=== PATIENT | male | born 1945 | race Caucasian/White ===

== ENCOUNTER 2018-03-18 18:11 | Observation (INO) | payer MEDICARE, OTHER ==
[~2018-03-18] VITALS: Ht 176.8 cm; Wt 74.3 kg
[2018-03-18 21:47] VITALS: PULSE 83
[2018-03-18 22:00] VITALS: BP 111/66; PULSE 83; RESP 18
[2018-03-19] VITALS: BP 112/66; PULSE 76; PULSE 88; RESP 18
[2018-03-19] MEDS ORDERED: ONDANSETRON 4 MG INJ IV PRN
[2018-03-19] MEDS ORDERED: ACETAMINOPHEN 325 MG TAB PO PRN
[2018-03-19] MEDS ORDERED: BISACODYL (EC) 5 MG TAB PO PRN
[2018-03-19] MEDS ORDERED: DOCUSATE SODIUM 100 MG CAP PO PRN
[2018-03-19] MEDS ORDERED: NACL 0.9% 3 ML SYG IV SCH
--- NOTE | 2018-03-19 02:34 | HP ---
Date/Time of Note Date/Time of Note DATE: 03/19/18 TIME: 02:34 Assessment/Plan VTE Prophylaxis SCD applied (from Nsg): Yes Pharmacological prophylaxis: NA/contraindicated Pharm contraindication: low risk/ambulating Lines/Catheters IV Catheter Type (from Nrsg): Peripheral IV Urinary Cath still in place: No Assessment/Plan Hospital Course This is a 73-year-old male being admitted to the telemetry for observation for: #1 suspect syncope: Question syncopal episode versus seizure activity versus other. Patient also apparently has a history of throat cancer. Also given his history of this happening approximately 4 times in the past will proceed with a full workup. Will check an echocardiogram, MRI of the brain with and without contrast. Carotid Doppler ultrasound. Orthostatic vital signs. Will consult neurology . Will check urine drug screen, ethanol level. Check hemoglobin A1c is 5.4, TSH is elevated at 17, will check a free T3 and free T4. Fall precautions, seizure precautions, PRN Ativan. EEG. #2 elevated TSH: Patient did report that he has been feeling tired and he does get short of breath when he walks which could be reflective of a undiagnosed hypothyroidism. We will check free T3 free T4. Given the elevation though in the TSH and the symptoms described above he likely would benefit from levothyroxine. We will need to confirm whether the supposed throat surgery was and may be related to his thyroid instead. #3 history of throat cancer: Reports surgery but no chemotherapy. We will need to see if we can obtain any more information on this. Again we will need to confirm whether this may be was on thyroid surgery and his elevated TSH. #4 DVT GI prophylaxis: SCDs, no GI prophylaxis indicated further treatment Strategy will be implemented as per the clinical course. Result Diagram: 03/18/18 03/18/18 2355 Results 24hrs Laboratory Tests Test 03/18/18 23:55 White Blood Count 10.7 Red Blood Count 4.32 L Hemoglobin 13.5 L Hematocrit 40.3 L Mean Corpuscular Volume 93.3 Mean Corpuscular Hemoglobin 31.3 Mean Corpuscular Hemoglobin Concent 33.5 Red Cell Distribution Width 11.9 Platelet Count 264 Mean Platelet Volume 9.7 Immature Granulocytes % 0.500 H Neutrophils % 58.8 Lymphocytes % 27.4 Monocytes % 10.2 Eosinophils % 2.6 Basophils % 0.5 Nucleated Red Blood Cells % 0.0 Immature Granulocytes # 0.050 H Neutrophils # 6.3 Lymphocytes # 2.9 Monocytes # 1.1 H Eosinophils # 0.3 Basophils # 0.1 Nucleated Red Blood Cells # 0.0 Sodium Level 141 Potassium Level 4.2 Chloride Level 105 Carbon Dioxide Level 26 Anion Gap 10 Blood Urea Nitrogen 16 Creatinine 1.05 Est Glomerular Filtrat Rate mL/min Glucose Level 114 Hemoglobin A1c 5.4 Calcium Level 9.1 Magnesium Level 2.1 Total Bilirubin 0.1 L Direct Bilirubin 0.00 Indirect Bilirubin 0.1 Aspartate Amino Transf (AST/SGOT) 17 Alanine Aminotransferase (ALT/SGPT) 16 Alkaline Phosphatase 80 Total Protein 6.9 Albumin 3.4 Globulin 3.50 H Albumin/Globulin Ratio 0.97 Triglycerides Level 167 H Cholesterol Level 175 LDL Cholesterol, Calculated 113 HDL Cholesterol 29 L Cholesterol/HDL Ratio 6.0 Thyroid Stimulating Hormone (TSH) 17.000 H HPI/ROS Admit Date/Time Admit Date/Time Mar 18, 2018 at 21:26 Hx of Present Illness 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 This is a 73-year-old male who presented to the emergency department at [facility] reporting that he had a syncopal episode. The reports that the patient was sitting on the ground and watching TV and according to the he became unconscious and fell back and he became pale and he started shaking. All imaging studies and lab work remain hospital came back essentially negative for any acute event. The upon questioning states she is unsure whether he had a seizure. It took only a few minutes to recover. She denies any urinary incontinence. Patient himself reports that this has happened approximately 4 times over an unspecified period. He did go to the hospital one time prior and he was discharged and told that there was nothing wrong. He does report that he has been feeling tired lately and when he does feel dyspneic on exertion. He does smoke and he does drink alcohol but is not a heavy drinker. He did have a bit of alcohol yesterday. The patient was transferred to [facility] secondary to insurance purposes. Vitals on presentation to [facility]: Temperature 97.9/pulse 76/respirations 16/BP 138/81/pulse ox 94% on room air Pertinent laboratory findings please see chart for full details: Next CBC: White blood cells 8.1/hemoglobin 14.7/hematocrit 43.7/platelets 259 Sodium 137/potassium 4.0 Glucose 90 Troponin was elevated at 20 CT of the head without IV contrast : No evidence of acute infarct or intracranial hemorrhage Chest x-ray showed: Coarse bilateral reticular markings are noted at the bases. Differential considered include scarring, atelectasis or early atypical pneumonia EKG: Normal sinus rhythm at approximately [address] or T wave abnormalities concerning for acute ischemia. ROS Const: As per HPI Eyes : No pain discharge or redness or change in visual acuity ENT: No pain, sore throat, congestion, congestion, dysphagia or discharge Respiratory: No shortness of breath, cough, sputum, wheezing, or pleuritic pain Cardiovascular: No chest pain, palpitation, PND, or edema GI : no change in appetite, abdominal pain, nausea, vomiting, diarrhea, constipation, or change in the color his stool Genitourinary: No dysuria, hematuria, flank pain , discharge or CVA tenderness Musculoskeletal: No joint pain, back pain, neck pain, restricted range of motion in neck or joints Skin: No rash, bruising or hives Neuro: As per HPI Endocrine: No polyuria, polydipsia, temperature intolerance Psych: No hallucination, depression, anxiety or suicidal ideation PMH/Family/Social Past Medical History Prostate issues, history of throat cancer? (patient unable to provide a proper history in regards to both of these) Medications Current Medications IV Flush (NS 3 ml) 3 ml PER PROTOCOL IV ; Start 03/19/18 at 00:00 Ondansetron HCl (Zofran Inj) 4 mg Q6H PRN IV NAUSEA AND/OR VOMITING; Start 03/19/18 at 00:00 Acetaminophen (Tylenol Tab) 650 mg Q6H PRN PO PAIN LEVEL 1-3 OR FEVER; Start 03/19/18 at 00:00 Docusate Sodium (Colace) 100 mg Q12H PRN PO CONSTIPATION; Start 03/19/18 at 00:00 Bisacodyl (Dulcolax) 5 mg DAILY PRN PO CONSTIPATION; Start 03/19/18 at 00:00 Coded Allergies: No Known Allergy (Unverified , 03/18/18) Past Surgical History Prostate surgery, throat surgery (patient unable to provide a proper history in regards to both of these) Family History Significant Family History: no pertinent family hx Social History Alcohol Use: occasionally Smoking Status: Current every day smoker Exam/Review of Systems Vital Signs Vitals Vital Signs Date Temp Pulse Resp B/P (MAP) Pulse Ox O2 O2 Flow FiO2 Time Delivery Rate 03/19/18 88 00:00 03/19/18 98.3 18 112/66 95 00:00 (81) Exam Exam General: Patient is a pleasant male currently lying in bed in no acute distress HEENT: Atraumatic, normocephalic. The pupils are equal, round and reactive. Extr aocular motor are intact Neck: Supple with full range of motion. No rigidity or meningismus, surgical scar present Chest: Nontender Lungs: Clear to auscultation bilaterally no crackles rales or wheezing Heart: Normal S1-S2, Regular rhythm and rate. No murmur, S3, or S4 Abdomen: Soft , nontender, nondistended , bowel sounds are present. No guarding no rebound tenderness , No masses or organomegaly. No costovertebral temporal angle mass Extremities: Normal to inspection, no edema no cyanosis Neurologic: Normal mental status, speech normal, cranial nerves II through XII are intact, motor and sensory are intact, Additional Comments EKG: Normal sinus rhythm at approximately [address] or T wave abnormalities concerning for acute ischemia. IRENE MADRIGAL Mar 19, 2018 02:34
[2018-03-19 04:00] VITALS: BP 132/77; PULSE 76; PULSE 87; RESP 18
[2018-03-19 07:49] VITALS: BP 122/81; PULSE 77; RESP 18
[2018-03-19 08:25] VITALS: PULSE 76
[2018-03-19] MEDS ORDERED: LORAZEPAM 2 MG INJ IV PRN (08:30)
[2018-03-19] MEDS ORDERED: LEVOTHYROXINE 125 MCG TAB PO SCH (10:00)
--- NOTE | 2018-03-19 10:04 | RADRPT ---
Echocardiogram Report Patient Name: HERBERTH FREEMAN Gender: Male Date: 1945 Study Date: 19-Mar-2018 Senior Project Accountant: Velasquez Mcintyre RDCS Location: 6 Ref. Physician: IRENE MADRIGAL Quality: Adequate Procedures: Transthoracic echocardiogram with complete 2D, M-Mode, and doppler examination. Indications: Syncope. 2D/M Mode Doppler Measurement Value Normal Ranges Measurement Value Normal Ranges LVIDd 2D 3.4 3.5 - 5.6 cm AV Peak Nilesh 0.9 m/sec LVIDs 2D 2.5 2.1 - 4.1 cm AV Peak PG 3.0 mmHg FS 2D 27.1 % LVOT Peak Nilesh 0.7 m/sec LVPWd 2D 1.4 0.6 - 1.1 cm LVOT Peak PG 2.0 mmHg IVSd 2D 1.0 0.6 - 1.1 cm MV E Peak Nilesh 0.4 m/sec IVS/LVPW 2D 0.7 MV A Peak Nilesh 0.7 m/sec AoR Diam 2D 3.1 2.0 - 3.7 cm MV E/A 0.6 LA/Ao 2D 1 0 - 1 MV Decel Time 187 msec EDV 2D 39.3 cm3 MV E/A 0.6 ESV 2D 15.3 cm3 LA Dimen 2D 3.0 2.3 - 4.0 cm Findings Left Ventricle: Normal left ventricular systolic function. Normal left ventricular cavity size. Mild hypertrophy of the basal septum. Ejection fraction is visually estimated at 60 %. Tissue Doppler/Mitral Doppler indices are consistent with impaired relaxation (Stage I diastolic dysfunction). Right Ventricle: Normal right ventricular size. Normal right ventricular systolic function. Left Atrium: There is mild enlargement of left atrium. Right Atrium: The right atrium is normal in size. Mitral Valve: Normal appearance of the mitral valve. Mild mitral annular calcification. No mitral valve regurgitation is seen. Aortic Valve: Aortic sclerosis without significant stenosis. No aortic regurgitation. Tricuspid Valve: Normal appearance of the tricuspid valve. Unable to obtain RVSP due to minimal presence of tricuspid regurgitation. Pericardium: Normal pericardium with no significant pericardial effusion. Aorta: Normal aortic root. IVC: The IVC is not well visualized. Conclusions Normal left ventricular systolic function. Normal left ventricular cavity size. Mild hypertrophy of the basal septum. Ejection fraction is visually estimated at 60 %. Tissue Doppler/Mitral Doppler indices are consistent with impaired relaxation (Stage I diastolic dysfunction). Aortic sclerosis without significant stenosis. Unable to obtain RVSP due to minimal presence of tricuspid regurgitation. The IVC is not well visualized. Electronically Signed By: Negro Lopez 19-Mar-2018 10:03:08 -0800 Patient Name: HERBERTH FREEMAN Study Date: 19-Mar-2018 [id number]
--- NOTE | 2018-03-19 17:03 | DS ---
Date/Time of Note Date/Time of Note DATE: 03/19/18 TIME: 17:00 Discharge Summary Admission/Discharge Info Admit Date/Time Mar 18, 2018 at 21:26 Discharge Date/Time Mar 19, 2018 at 10:32 Discharge Diagnosis Syncope, unclear etiology. Hypothyroidism Patient Condition: Fair Consults None Procedures None Hx of Present Illness This is a 73-year-old male who presented to the emergency department at [facility] reporting that he had a syncopal episode. The reports that the patient was sitting on the ground and watching TV and according to the he became unconscious and fell back and he became pale and he started shaking. All imaging studies and lab work remain hospital came back essentially negative for any acute event. The upon questioning states she is unsure whether he had a seizure. It took only a few minutes to recover. She denies any urinary incontinence. Patient himself reports that this has happened approximately 4 times over an unspecified period. He did go to the hospital one time prior and he was discharged and told that there was nothing wrong. He does report that he has been feeling tired lately and when he does feel dyspneic on exertion. He does smoke and he does drink alcohol but is not a heavy drinker. He did have a bit of alcohol yesterday. The patient was transferred to [facility] secondary to insurance purposes. Vitals on presentation to [facility]: Temperature 97.9/pulse 76/respirations 16/BP 138/81/pulse ox 94% on room air Pertinent laboratory findings please see chart for full details: Next CBC: White blood cells 8.1/hemoglobin 14.7/hematocrit 43.7/platelets 259 Sodium 137/potassium 4.0 Glucose 90 Troponin was elevated at 20 CT of the head without IV contrast : No evidence of acute infarct or intracranial hemorrhage Chest x-ray showed: Coarse bilateral reticular markings are noted at the bases. Differential considered include scarring, atelectasis or early atypical pneumonia EKG: Normal sinus rhythm at approximately [address] or T wave abnormalities concerning for acute ischemia. Hospital Course In the morning soon after I arrived; the patient requested to leave AMA. I explained that there was a risk he may have an underlying cardiac or neurologic problem causing syncope which requires further workup. He declined, saying "If I have another <episode> that's in God's hands". I also mentioned the significant hypothyroidism noted on labs. The patient does not currently take any meds but he is agreeable to take levothyroxine. I will start him on weight based synthroid 125 mcg daily, and he should see his outpatient PMD. Primary Care Provider [facility], [place], [facility] Time spent on discharge: > 30 minutes Pending Labs Laboratory Tests Test 03/18/18 23:55 03/19/18 05:07 03/19/18 07:15 03/19/18 07:21 White Blood 10.7 9.7 Count 10^3/ul (4.8-10 10^3/ul (4.8-1 .8) 0.8) Red Blood 4.32 4.48 Count 10^6/ul (4.70-6 10^6/ul (4.70- .10) 6.10) Hemoglobin 13.5 13.9 g/dl (14.0-18.0 g/dl (14.0-18. ) 0) Hematocrit 40.3 41.6 % (42.0-52.0) % (42.0-52.0) Mean 93.3 92.9 Corpuscular fl (82.0-101.0) fl (82.0-101.0 Volume ) Mean 31.3 31.0 Corpuscular pg (29.0-33.0) pg (29.0-33.0) Hemoglobin Mean 33.5 33.4 Corpuscular g/dl (32.0-37.0 g/dl (32.0-37. Hemoglobin Conc ) 0) ent Red Cell 11.9 12.0 Distribution % (11.5-14.5) % (11.5-14.5) Width Platelet Count 264 246 10^3/UL (140-41 10^3/UL (140-4 5) 15) Mean Platelet 9.7 9.9 Volume fl (7.4-10.4) fl (7.4-10.4) Immature 0.500 0.500 Granulocytes % % (0.001-0.429) % (0.001-0.429 ) Neutrophils % 58.8 57.7 % (39.0-77.0) % (39.0-77.0) Lymphocytes % 27.4 29.4 % (15.0-51.0) % (15.0-51.0) Monocytes % 10.2 8.9 % (0.0-11.0) % (0.0-11.0) Eosinophils % 2.6 % (0.0-7.0) 2.9 % (0.0-7.0) Basophils % 0.5 % (0.0-2.0) 0.6 % (0.0-2.0) Nucleated Red 0.0 0.0 Blood Cells % /100WBC (0.0-0. /100WBC (0.0-0 0) .0) Immature 0.050 0.050 Granulocytes # 10^3/ul (0.0-0. 10^3/ul (0.0-0 031) .031) Neutrophils # 6.3 5.6 10^3/ul (1.6-7. 10^3/ul (1.6-7 5) .5) Lymphocytes # 2.9 2.8 10^3/ul (0.8-2. 10^3/ul (0.8-2 9) .9) Monocytes # 1.1 0.9 10^3/ul (0.3-0. 10^3/ul (0.3-0 9) .9) Eosinophils # 0.3 0.3 10^3/ul (0.0-0. 10^3/ul (0.0-0 5) .5) Basophils # 0.1 0.1 10^3/ul (0.0-0. 10^3/ul (0.0-0 1) .1) Nucleated Red 0.0 0.0 Blood Cells # 10^3/ul (0.0-0. 10^3/ul (0.0-0 0) .0) Sodium Level 141 140 mmol/L (135-144 mmol/L (135-14 ) 4) Potassium 4.2 4.4 Level mmol/L (3.5-5.1 mmol/L (3.5-5. ) 1) Chloride Level 105 107 mmol/L (97-110) mmol/L (97-110 ) Carbon Dioxide 26 25 Level mmol/L (21-31) mmol/L (21-31) Anion Gap 10 (5-13) 8 (5-13) Blood Urea 16 mg/dl (7-20) 16 Nitrogen mg/dl (7-20) Creatinine 1.05 0.98 mg/dl (0.61-1.2 mg/dl (0.61-1. 4) 24) Est Glomerular mL/min (>60) mL/min (>60) Filtrat Rate mL/min Glucose Level 114 100 mg/dl (70-220) mg/dl (70-220) Hemoglobin A1c 5.4 % (0-5.9) Calcium Level 9.1 9.1 mg/dl (8.4-10.2 mg/dl (8.4-10. ) 2) Magnesium 2.1 Level mg/dl (1.7-2.5) Total 0.1 Bilirubin mg/dl (0.2-1.3) Direct 0.00 Bilirubin mg/dl (0.00-0.2 0) Indirect 0.1 Bilirubin mg/dl (0-1.1) Aspartate Amino 17 IU/L (15-46) Transf (AST/SGO T) Alanine 16 IU/L (13-69) Aminotransferas e (ALT/SGPT) Alkaline 80 Phosphatase IU/L (42-121) Total Protein 6.9 g/dl (6.1-8.1) Albumin 3.4 g/dl (3.3-4.9) Globulin 3.50 g/dl (1.3-3.2) Albumin/Globuli 0.97 n Ratio Triglycerides 167 Level mg/dl (0-149) Cholesterol 175 Level mg/dl (100-200) LDL 113 mg/dl Cholesterol, Calculated HDL 29 Cholesterol mg/dl (31-75) Cholesterol/HDL 6.0 RATIO Ratio Thyroid 17.000 Stimulating MIU/L (0.465-4. Hormone (TSH) 680) Free Thyroxine 0.75 ng/dl (0.78-2. 44) Free 3.95 Triiodothyronin pg/ml (2.77-5. e (T3) pg/mL 27) Ethyl Alcohol < 10.0 Level mg/dl (0-0) Creatine 84 Kinase IU/L (23-200) Creatine Kinase 1.3 Index Creatinine 1.13 Kinase MB ng/ml (0.0-2.4 (Mass) ) Troponin I < 0.012 ng/ml (0.000-0 .120) DEANNA DELGADILLO MD Mar 19, 2018 17:03
== END 2018-03-19 10:32 | disposition left against medical advice (07) ==
LOC: 6WM 21:26 → INTOOBSV 21:26
PROVIDERS: ADMIT Internal Medicine; ATTEND Internal Medicine
DX: R55 Syncope and collapse (principal); E03.9 Hypothyroidism, unspecified
CPT/HCPCS: 71045; 80048; 80053; 80061; 80307; 82550; 82553; 83036; 83735; 84439; 84443; 84481; 84484; 85025; 87081; 93306; 93880; Z7500; 99217; G0378